=== PATIENT | male | born 1995 | race Caucasian/White ===

== ENCOUNTER 2020-08-06 18:10 | Emergency (ER) | payer BC, MEDICAID ==
[~2020-08-06] VITALS: Ht 175.3 cm; Wt 63.0 kg
[2020-08-06 22:06] VITALS: BP 119/61
== END 2020-08-06 22:10 | disposition home or self-care (01) ==
LOC: ER 18:10
DX: S83.8X1A Sprain of other specified parts of right knee, initial encounter (principal); X58.XXXA Exposure to other specified factors, initial encounter; Y93.89 Activity, other specified; Y92.89 Other specified places as the place of occurrence of the external cause
CPT/HCPCS: 73562; 99283; L1830

== ENCOUNTER 2021-10-01 14:39 | Emergency (ER) | payer BC, OTHER ==
[~2021-10-01] VITALS: Ht 175.3 cm; Wt 61.0 kg
[2021-10-01] MEDS ORDERED: TETANUS, DIPHTHERIA, PERTUSSIS VAC/PF 0.5ML (>10YR OLD) IM ONE (15:45)
[2021-10-01] MEDS ORDERED: AMOXICILLIN/POTASSIUM CLAVULANATE 875/125MG TAB PO ONE (15:45)
[2021-10-01] MEDS ORDERED: IBUPROFEN 600MG TABLET PO ONE (15:45)
[2021-10-01] MEDS ORDERED: HYDROCODONE/ACETAMINOPHEN 5/325MG TABLET PO ONE (16:30)
[2021-10-01] MEDS ORDERED: IBUP-2029 MT (17:42)
[2021-10-01] MEDS ORDERED: AMOX-424 MT (17:42)
[2021-10-01 17:50] VITALS: BP 112/61
== END 2021-10-01 17:58 | disposition home or self-care (01) ==
LOC: ER 14:39
DX: S51.851A Open bite of right forearm, initial encounter (principal); W54.0XXA Bitten by dog, initial encounter; Y93.89 Activity, other specified; Y92.89 Other specified places as the place of occurrence of the external cause; Y99.8 Other external cause status
CPT/HCPCS: 73090; 90471; 90715; 99283; Z7610

== ENCOUNTER 2021-10-02 11:13 | Emergency (ER) | payer OTHER ==
[~2021-10-02] VITALS: Ht 175.3 cm; Wt 61.0 kg
[~2021-10-02 11:13] MED LIST: AMOX-424 MT; IBUP-2029 MT
[2021-10-02 12:14] VITALS: BP 108/84
== END 2021-10-02 12:20 | disposition home or self-care (01) ==
LOC: ER 11:13
DX: Z48.00 Encounter for change or removal of nonsurgical wound dressing (principal)
CPT/HCPCS: 99281

== ENCOUNTER 2024-06-02 11:04 | Emergency (ER) | payer OTHER ==
[~2024-06-02] VITALS: Ht 175.3 cm; Wt 76.0 kg
[2024-06-02 11:24] VITALS: TEMP 98.7; O2SAT 98
[2024-06-02 12:17] LABS: TROPONIN I HIGH SENSITIVITY < 4 ng/L (3.0-53)
[2024-06-02 13:11] LABS: TROPONIN I HIGH SENSITIVITY < 4 ng/L (3.0-53)
[2024-06-02] MEDS ORDERED: IBUP-2029 MT (13:25)
[2024-06-02] MEDS ORDERED: FAMO-135 PO (13:26)
[2024-06-02 13:32] VITALS: BP 120/69; PULSE 69; RESP 18
[2024-06-02] MEDS: IBUPROFEN 600MG TABLET PO ONE (13:32)
[2024-06-02] MEDS: FAMOTIDINE 20MG TABLET PO ONE (13:32)
== END 2024-06-02 14:18 | disposition home or self-care (01) ==
LOC: ER 12:11
DX: M94.0 Chondrocostal junction syndrome [Tietze] (principal); R07.89 Other chest pain; F12.10 Cannabis abuse, uncomplicated; Z79.899 Other long term (current) drug therapy
CPT/HCPCS: 36415; 71045; 84484; 93005; 99285